=== PATIENT | male | born 1960 | race Caucasian/White ===

== ENCOUNTER 2020-10-03 14:35 | Emergency (ER) | payer OTHER ==
[~2020-10-03] VITALS: Ht 180.3 cm; Wt 79.4 kg
[2020-10-03] MEDS ORDERED: PROTONIX 20 MG20 M1 PO (14:44)
[2020-10-03] MEDS ORDERED: FISH OIL 1,0001 EAC9 PO (14:45)
[2020-10-03] MEDS ORDERED: PROCTOFOAM-HC 110 GM TOP (16:07)
[2020-10-03 16:20] VITALS: BP 132/99
== END 2020-10-03 16:20 | disposition home or self-care (01) ==
LOC: M.ERS 14:35
DX: K64.5 Perianal venous thrombosis (principal)